=== PATIENT | male | born 1990 | race Caucasian/White ===

== ENCOUNTER 2018-09-20 05:31 | Emergency (ER) | payer OTHER ==
[~2018-09-20] VITALS: Ht 170.2 cm; Wt 96.6 kg
[2018-09-20 05:32] VITALS: Ht 170.2 cm; Wt 96.6 kg
[2018-09-20 06:40] VITALS: BP 138/92
== END 2018-09-20 06:40 | disposition other institution (70) ==
LOC: ED 05:31
DX: S60.221A Contusion of right hand, initial encounter (principal); W22.8XXA Striking against or struck by other objects, initial encounter; Y93.89 Activity, other specified; Y92.89 Other specified places as the place of occurrence of the external cause; Y99.8 Other external cause status

== ENCOUNTER 2018-09-20 05:31 | Emergency (ER) | payer OTHER | END 2018-09-20 06:40 | disposition other institution (70) | LOC: ED 05:31 | DX: Z02.89 Encounter for other administrative examinations (principal) ==